=== PATIENT | female | born 1960 | race Caucasian/White ===

== ENCOUNTER → 2017-03-03 | Outpatient (CLI) | payer BC ==
--- NOTE | 2017-03-03 12:26 | EKG ---
[address] [address] Measurements Intervals [place] Rate: 87 P: 64 [place]: 169 QRS: 47 QRSD: 84 T: 49 QT: 363 QTc: 408 Interpretive Statements SINUS RHYTHM No previous ECG available for comparison Electronically Signed On 03-03-17 14:03:37 MDT by Jordan Mendoza [email or web address]
--- NOTE | 2017-03-03 12:34 | DI ---
PA /LATERAL CHEST X-RAY, 03/03/2017 11:55 AM : Clinical History: Paresthesia Previous Exam: None at this facility. There is no acute soft tissue or bony abnormality. Heart size is normal. Lungs are clear. Mediastinal structures are normal. There are no pulmonary nodules. IMPRESSION: Normal chest x-ray.
[2017-03-03 12:43] LABS: BASOPHILS # (AUTO) 0.04 10*3/UL; BASOPHILS % (AUTO) 0.4 % (0-1); EOSINOPHILS # (AUTO) 0.15 10*3/UL; EOSINOPHILS % (AUTO) 1.5 % (0-8); HEMATOCRIT 37.3 % (37.0-47.0); HEMOGLOBIN 12.3 g/dL (12.0-16.0); MEAN CORPUSCULAR HEMOGLOBIN 28.3 PG (27-31); MEAN CORPUSCULAR VOLUME 85.7 FL (81-99); MEAN PLATELET VOLUME 9.4 FL (7.4-12.2); MONOCYTES # (AUTO) 0.54 10*3/UL (0.3-0.8); MONOCYTES % (AUTO) 5.4 % (5-15); NEUTROPHILS # (AUTO) 7.02 10*3/UL; NEUTROPHILS % (AUTO) 69.7 % (50-80); RED BLOOD COUNT 4.35 10^6/uL (4.20-5.40)
[2017-03-03 12:45] LABS: PLATELET MORPHOLOGY COMMENT NORMAL MORPHOLOGY (NORM); RBC MORPHOLOGY COMMENT NORMAL MORPHOLOGY (NORM); WBC MORPHOLOGY COMMENT NORMAL MORPHOLOGY (NORM)
[2017-03-03 12:53] LABS: BUN/CREATININE RATIO 25.38 (6-20); CALCIUM 9.8 mg/dL (8.7-10.7); SERUM ALBUMIN 4.1 g/dL (3.5-4.8)
[2017-03-03 12:54] LABS: HEMOGLOBIN A1C 9.94 % (4.2-6.0)
[2017-03-03 13:16] LABS: CREATINE KINASE MB 0.96 NG/ML (0.00-5.00); TROPONIN I < 0.012 ng/mL (< 0.040)
== END ==
LOC: MOB LAB 12:04
PROVIDERS: ATTEND Physician Assistant
DX: E11.65 Type 2 diabetes mellitus with hyperglycemia (principal); R20.2 Paresthesia of skin; R07.9 Chest pain, unspecified; R79.89 Other specified abnormal findings of blood chemistry
CPT/HCPCS: 36415; 71020; 80053; 82553; 82607; 82746; 83036; 83690; 84484; 85025; 93005; 93010